=== PATIENT | male | born 1965 | race Hispanic/Latino ===

== ENCOUNTER → 2020-10-16 | Outpatient (CLI) | payer OTHER | END | disposition home or self-care (01) | LOC: OIH 19:24 | PROVIDERS: ATTEND Internal Medicine Cardiovascular Disease | DX: Z13.6 Encounter for screening for cardiovascular disorders (principal); I51.5 Myocardial degeneration; K44.9 Diaphragmatic hernia without obstruction or gangrene | CPT/HCPCS: 75571 ==